=== PATIENT | male | born 1945 | race Caucasian/White ===

== ENCOUNTER 2022-02-05 09:12 | Emergency (ER) | payer OTHER, MEDICARE ==
[~2022-02-05] VITALS: Ht 177.8 cm; Wt 88.5 kg
[2022-02-05 09:39] VITALS: BP_SYST 132
--- NOTE | 2022-02-05 09:48 | NUR ---
Patient to ER bed 2 to gown for evaluation. Side rails up. Report given to VON TONG.
--- NOTE | 2022-02-05 09:52 | NUR ---
Pt came in from home c/o pain to L ear r/t bug bite he believes was yellow jacket wasp. Pt saw the wasp after it bit him. Ear pain rated 4/10. Denies SOB, f/v/d. Patient VSS, calm and cooperative in no acute distress. Pt is A&Ox4. Will provide care as ordered.
--- NOTE | 2022-02-05 10:30 | NUR ---
ER Dr. Aguilar at bedside examining patient.
[2022-02-05] MEDS ORDERED: TRIA15CR4 TP (10:31)
[2022-02-05] MEDS ORDERED: PRED20TA PO (10:31)
[2022-02-05] MEDS ORDERED: DIPH25CA83 PO (10:31)
--- NOTE | 2022-02-05 10:54 | NUR ---
Patient given written and verbal discharge instructions and verbalizes understanding. ER Dr. Jeff STEVENS discussed with patient the results and treatment provided. Patient in stable condition. ID arm band removed. Rx of diphenhydramine, prednisone, triamcinolone given. Patient educated on pain management and to follow up with PMD. Pain Scale 2/10. Opportunity for questions provided and answered. Medication side effect fact sheet provided.
== END 2022-02-05 10:53 | disposition home or self-care (01) ==
LOC: SED 09:12
DX: L50.9 Urticaria, unspecified (principal); H92.02 Otalgia, left ear; Z79.899 Other long term (current) drug therapy
CPT/HCPCS: 99283

== ENCOUNTER 2023-06-24 06:53 | Emergency (ER) | payer OTHER, MEDICARE ==
[~2023-06-24] VITALS: Ht 175.3 cm; Wt 88.9 kg
[~2023-06-24 06:53] MED LIST: DIPH25CA83 PO; PRED20TA PO; TRIA15CR4 TP
[2023-06-24 07:00] VITALS: BP_SYST 153; PULSE 58; RESP 20; TEMP 98; O2SAT 97
[2023-06-24] MEDS: ASPIRIN 325 MG TABLET PO ONE (07:25)
[2023-06-24 07:27] LABS: BASOPHILS % (AUTO) 0.5 % (0.0-2.0); EOSINOPHILS # (AUTO) 0.1 K/uL (0.0-0.4); EOSINOPHILS % (AUTO) 1.6 % (0.0-4.0); HEMATOCRIT 44.8 % (36-54); HEMOGLOBIN 15.3 g/dL (14.0-18.0); LYMPHOCYTES # (AUTO) 0.9 K/uL (1.0-5.5); LYMPHOCYTES % (AUTO) 16.2 % (20.5-51.5); MEAN CORPUSCULAR HEMOGLOBIN 34 pg (27-31); MEAN CORPUSCULAR HGB CONC 34 % (32-36); MEAN CORPUSCULAR VOLUME 98 fL (79.0-98.0); MONOCYTES # (AUTO) 0.7 K/uL (0.0-1.0); MONOCYTES % (AUTO) 12.7 % (1.7-9.3); NEUTROPHILS # (AUTO) 3.9 K/uL (1.8-7.7); PLATELET COUNT (AUTO) 124 K/uL (130-430); RED BLOOD CELL COUNT(AUTO) 4.57 MIL/uL (4.2-6.2); RED CELL DISTRIBUTION WIDTH 13.5 % (9.0-15.0); WHITE BLOOD COUNT (AUTO) 5.7 K/uL (4.8-10.8)
[2023-06-24 07:35] LABS: ANION GAP 7 (5-15); CALCIUM 9.2 mg/dL (8.4-11.0); CARBON DIOXIDE 30 mmol/L (23-29); CHLORIDE 109 mmol/L (98-107); CREATININE 0.82 mg/dL (0.55-1.30); GLUCOSE 113 mg/dL (74-106); POTASSIUM 4.3 mmol/L (3.5-5.1); SODIUM SERUM 146 mmol/L (136-145); UREA NITROGEN, BLOOD 24 mg/dL (8-21)
[2023-06-24] MEDS ORDERED: cefTRIAXone 1 GM IVPB PREMIX 50 ML IV SCH (08:15)
[2023-06-24 10:15] VITALS: BP_SYST 140; PULSE 58; RESP 19; TEMP 98; O2SAT 98
== END 2023-06-24 10:15 | disposition home or self-care (01) ==
LOC: SED 06:53
DX: R07.89 Other chest pain (principal); Z79.899 Other long term (current) drug therapy
CPT/HCPCS: 36415; 80048; 84484; 85025; 93005; 99284

== ENCOUNTER 2024-02-06 21:53 | Emergency (ER) | payer OTHER, MEDICARE ==
[~2024-02-06] VITALS: Ht 177.8 cm; Wt 90.7 kg
[2024-02-06 22:01] VITALS: BP_SYST 138; PULSE 68; RESP 18; TEMP 97.6; O2SAT 95
[2024-02-06] MEDS: NITROGLYCERIN 1 INCH (GM) OINT. TP ONE (22:42)
[2024-02-06 22:47] LABS: BASOPHILS % (AUTO) 0.5 % (0.0-2.0); EOSINOPHILS # (AUTO) 0.1 K/uL (0.0-0.4); EOSINOPHILS % (AUTO) 1.7 % (0.0-4.0); HEMATOCRIT 41.7 % (36-54); HEMOGLOBIN 14.4 g/dL (14.0-18.0); LYMPHOCYTES # (AUTO) 1.1 K/uL (1.0-5.5); LYMPHOCYTES % (AUTO) 18.4 % (20.5-51.5); MEAN CORPUSCULAR HEMOGLOBIN 34 pg (27-31); MEAN CORPUSCULAR HGB CONC 34 % (32-36); MEAN CORPUSCULAR VOLUME 97 fL (79.0-98.0); MONOCYTES # (AUTO) 0.9 K/uL (0.0-1.0); MONOCYTES % (AUTO) 14.5 % (1.7-9.3); NEUTROPHILS # (AUTO) 3.8 K/uL (1.8-7.7); NEUTROPHILS % (AUTO) 64.9 % (40.0-70.0); PLATELET COUNT (AUTO) 128 K/uL (130-430); RED BLOOD CELL COUNT(AUTO) 4.29 MIL/uL (4.2-6.2); RED CELL DISTRIBUTION WIDTH 14.3 % (9.0-15.0); WHITE BLOOD COUNT (AUTO) 5.9 K/uL (4.8-10.8)
[2024-02-06] MEDS: MORPHINE 4 MG INJ. 4 MG/ML VIAL IVP ONE (22:54)
[2024-02-06 22:59] LABS: ALANINE AMINOTRANSFERASE 37 U/L (12-78); ALBUMIN 3.6 g/dL (3.4-4.8); ANION GAP 11 (5-15); ASPARTATE AMINOTRANSFERASE 26 U/L (10-37); BILIRUBIN,DIRECT 0.2 mg/dL (0.0-0.3); CALCIUM 8.9 mg/dL (8.4-11.0); CARBON DIOXIDE 25 mmol/L (23-29); CHLORIDE 107 mmol/L (98-107); CREATININE 1.06 mg/dL (0.55-1.30); GLUCOSE 120 mg/dL (74-106); POTASSIUM 3.9 mmol/L (3.5-5.1); SODIUM SERUM 143 mmol/L (136-145); TOTAL BILIRUBIN 0.5 mg/dL (0.0-1.0); UREA NITROGEN, BLOOD 22 mg/dL (8-21)
[2024-02-06 23:40] LABS: PROTHROMBIN TIME 10.1 SECS (9.5-12.5)
[2024-02-07] MEDS ORDERED: TRAM50TA2 PO (01:13)
[2024-02-07 01:34] VITALS: BP_SYST 125; PULSE 59; RESP 18; TEMP 97.6; O2SAT 94
== END 2024-02-07 01:19 | disposition home or self-care (01) ==
LOC: SED 21:53
DX: S22.32XA Fracture of one rib, left side, initial encounter for closed fracture (principal); E78.5 Hyperlipidemia, unspecified; I10 Essential (primary) hypertension; Z79.52 Long term (current) use of systemic steroids; Z96.652 Presence of left artificial knee joint; W22.09XA Striking against other stationary object, initial encounter; Y93.01 Activity, walking, marching and hiking; Y92.89 Other specified places as the place of occurrence of the external cause; Y99.8 Other external cause status
CPT/HCPCS: 99285; 96374; 71250; 71045; 80076; 80048; 83880; 85025; 85379; 85610; 85730; 84484; 36415; J2270